=== PATIENT | female | born 1970 | race Hispanic/Latino ===

== ENCOUNTER 2017-06-04 15:09 | Inpatient (IN) | payer SELFPAY ==
[2017-06-04] MEDS ORDERED: EPINEPHrine 1 MG/ML AMP ONE (15:26)
[2017-06-04] MEDS ORDERED: diphenhydrAMINE 50 MG/ML VIAL ONE (15:26)
[2017-06-04] MEDS ORDERED: Ondansetron HCl/PF 4 MG/2 ML Vial ONE ×2 (15:26→15:35)
[2017-06-04] MEDS ORDERED: Dexamethasone 4 mg/ml Vial ONE (15:26)
[2017-06-04 15:32] LABS: Hemoglobin 17.7 g/dL (12.0-16.0); Mean Corpuscular HGB CONC 34.1 g/dL (32.0-36.0); Mean Corpuscular Volume 85.2 fl (81.0-99.0); Mean Platelet Volume 8.8 fL (7.4-10.4); Platelet Count 275 thou/uL (130-400); RBC Distribution Width 14.3 % (11.5-14.5); Red Blood Cell (RBC) Count 6.08 mill/uL (4.20-5.40); White Blood Cell (WBC) Count 9.1 thou/uL (4.8-10.8)
[2017-06-04] MEDS ORDERED: Famotidine/PF 20 mg/2ml Vial ONE (15:35)
[2017-06-04 15:46] LABS: Band 2 % (5-11); Eosinophils 1 % (0-10); Lymphocytes 42 % (21-51); MDiff Complete? YES; Monocytes 1 % (0-10); Neutrophil 44 % (42-75); PLT Morphology Comment Appears Adequate; RBC Morphology Normal; Reactive Lymphocytes 9 % (0-10)
[2017-06-04 15:54] LABS: CKMB 0.5 ng/mL (0-6.6); Troponin I Less than 0.010 ng/mL (< 0.028)
--- NOTE | 2017-06-04 15:59 | RAD ---
PORTABLE CHEST 06/04/17 PROVIDED CLINICAL HISTORY: Chest pain. Comparison 07/24/15. FINDINGS: The cardiac and mediastinal silhouette is within normal limits. No focal consolidation, pleural fluid or pneumothorax apparent. IMPRESSION: No evidence for an acute cardiopulmonary process. POS: [facility]
[2017-06-04 16:24] LABS: Albumin 3.4 g/dL (3.5-5.0)
[2017-06-04 16:25] LABS: Chloride 105 mmol/L (98-107); Potassium 3.4 mmol/L (3.5-5.1); Sodium 133 mmol/L (136-145)
[2017-06-04 16:26] LABS: Calcium 8.4 mg/dL (7.8-10.44); Glucose 424 mg/dL (70-105)
[2017-06-04 16:27] LABS: Globulin 3.4 g/dL (2.4-3.5); Protein, Total 6.8 g/dL (6.0-8.3)
[2017-06-04 16:28] LABS: Anion Gap 14 mmol/L (10-20); Bilirubin, Total 0.3 mg/dL (0.2-1.2); Carbon Dioxide 17 mmol/L (22-29)
[2017-06-04 16:29] LABS: Alkaline Phosphatase 107 U/L (40-150)
[2017-06-04 16:30] LABS: Calc. Creatinine Clearance 0 mL/min (70-130); Estimated GFR-MDRD 70
[2017-06-04 16:31] LABS: BUN (Urea Nitrogen) 14 mg/dL (7.0-18.7)
[2017-06-04 16:32] LABS: ALT (SGPT) Less than 7 U/L (8-55); AST (SGOT) 10 U/L (5-34)
[2017-06-04] MEDS ORDERED: Insulin Regular 300 UNITS/3 ML VIAL ONE (16:32)
[2017-06-04 16:33] LABS: CK (CPK) 51 U/L (29-168)
[2017-06-04] MEDS ORDERED: Acetaminophen 325 MG TAB PO PRN (17:45)
[2017-06-04] MEDS ORDERED: Dextrose 50% Abboject 50 ML SYRINGE SLOW IVP PRN (17:51)
[2017-06-04] MEDS ORDERED: Dextrose 5% in Water 1,000 ML IV PRN (17:51)
[2017-06-04 18:47] VITALS: BMI 32.9
[2017-06-04] MEDS: Sodium Chloride 0.9% 1,000 ML IV SCH (19:43)
[2017-06-04] MEDS: Heparin 5,000 UNITS/ML VIAL SC SCH (19:43)
[2017-06-04] MEDS: Famotidine/PF 20 mg/2ml Vial SLOW IVP SCH (19:43)
--- NOTE | 2017-06-04 21:27 | HP ---
DATE OF ADMISSION: 06/04/2017 PRIMARY CARE PHYSICIAN: No PCP. CHIEF COMPLAINT: Hives. HISTORY OF PRESENT ILLNESS: Patient is a very pleasant 47-year-old female who came into the hospital for hives and possible angioedema. Patient states that she had a headache yesterday. Normally, she does have migraine headaches and thought it was a migraine headache; however, this morning, she woke up, she did not take any medications. She went out with her friend to look at some houses, before e daxa getting to see the houses, patient stated that she started to have feeling very hot. Her tongue swelled up and patient started having felt like that she was having hives and she became very itchy. Patient does take lisinopril and has been taking it for many many years. Patient denies any recent new medications that were added or anything new that she eat out of form the ordinary. Patient denie s eating any of the seafood. Patient did state that normally, she does get seasonal allergies and sh e does have hives and has been under a lot of stress; however, never has had her tongue swelled up, w timmyoxana alerted her friend and therefore, she came into the ER. PAST MEDICAL HISTORY: She has history of migraine headaches. She has a history of hypertension, heather betes, has a history of asthma. She also has a history of CVA in 2015 and TIAs. She also has a hist ory of dyslipidemia. SOCIAL HISTORY: Patient continues to smoke a half a pack a day. She denies any alcohol or drug use. PAST SURGICAL HISTORY: She has had hysterectomy, tonsillectomy, and history of tubal ligation. PSYCHIATRIC HISTORY: She has a history of anxiety, depression, possible PTSD. ALLERGIES: She has no known drug allergies. FAMILY HISTORY: She is adopted, so she has no information about that. CURRENT MEDICATIONS: She takes metformin, unknown dose. She takes glipizide, unknown dose. She teetee es an aspirin 81 mg daily and she takes lisinopril, unknown dose and in her chart, it looks like she also takes Xanax 0.25 mg p.o. t.i.d. p.r.n. PHYSICAL EXAMINATION: VITAL SIGNS: She is afebrile at 98.8, heart rate is 53, blood pressure is 128/73, 99% on room air. GENERAL: She is awake, alert, oriented x3. HEENT: She does have some facial swelling around her upper and lower bilateral eyelids. She does lara ve mild thickening of her tongue and some puffiness of her face. She does also have some tenderness upon palpation of her right temporal area. She does also have some swelling around bilateral earlobe s. LUNGS: Clear to auscultation. No rhonchi, wheezes noted. CARDIOVASCULAR: S1, S2 present. No murmurs, rubs, or gallops. ABDOMEN: Soft, bowel sounds are present x2. EXTREMITIES: No edema. Pedal pulses are present x2. REVIEW OF SYSTEMS: Except for the ones mentioned in the HPI, all the review of systems is negative. Constitutional: Weight loss or gain, ability to conduct usual activities. Skin: Rash, itching. E yes: Double vision, pain. ENT/Mouth: Nose bleeding, neck stiffness, pain, tenderness. Cardiovascu lar: Palpitations, dyspnea on exertion, orthopnea. Respiratory: Shortness of breath, wheezing, cou gh, hemoptysis, fever, or night sweats. Gastrointestinal: Poor appetite, abdominal pain, heartburn, nausea, vomiting, constipation, or diarrhea. Genitourinary: Urgency, frequency, dysuria, nocturia. Musculoskeletal: Pain, swelling. Neurologic/Psychiatric: Anxiety, depression. Allergy/Immunolog ic: Skin rash, bleeding tendency. LABORATORY DATA: White count of 9.1, hemoglobin of 17.7, hematocrit of 51.8. She has sodium of 133, potassium of 3.4, bicarbonate of 17, glucose of 424, and her creatinine is 0.86. ASSESSMENT AND PLAN: Patient is a very pleasant 47-year-old female who presents to the hospital with swelling and angioedema. 1. Angioedema, most likely secondary to possible lisinopril; however, patient states that she has no t taken the lisinopril this morning. She took it yesterday morning. She denies using or taking any new medications or any eating out anywhere or eating any seafood. Patient was given epinephrine, Dec adron, and Pepcid in the ER. We will admit the patient to IMCU for closer monitoring. Patient kandace melendez does not appear any respiratory distress. We will continue Solu-Medrol 40 mg b.i.d. We will als o continue Pepcid IV 20 b.i.d. We will discontinue lisinopril and continue to monitor. 2. Hypertension. We will just add p.r.n. for now. 3. Diabetes. We will put patient on sliding scale insulin and she will require since she is going t o be on steroids. 4. Deep venous thrombosis prophylaxis. We will put patient on subcutaneous heparin. 5. Smoking. Patient has been educated on smoking cessation given her history of strokes. Patient u jj, however, currently right now is not ready to quit. We will add a nicotine patch for the patient.
[2017-06-05 04:29] LABS: ALT (SGPT) 7 U/L (8-55); AST (SGOT) 11 U/L (5-34); Albumin 3.7 g/dL (3.5-5.0); Alkaline Phosphatase 103 U/L (40-150); Anion Gap 13 mmol/L (10-20); BUN (Urea Nitrogen) 15 mg/dL (7.0-18.7); Bilirubin, Total 0.4 mg/dL (0.2-1.2); Calc. Creatinine Clearance 101 mL/min (70-130); Calcium 8.8 mg/dL (7.8-10.44); Carbon Dioxide 21 mmol/L (22-29); Chloride 106 mmol/L (98-107); Estimated GFR-MDRD 77; Globulin 3.2 g/dL (2.4-3.5); Glucose 305 mg/dL (70-105); Potassium 4.8 mmol/L (3.5-5.1); Protein, Total 6.9 g/dL (6.0-8.3); Sodium 135 mmol/L (136-145)
[2017-06-05 05:21] LABS: Band 10 % (5-11); Hemoglobin 14.7 g/dL (12.0-16.0); Lymphocytes 4 % (21-51); MDiff Complete? YES; Mean Corpuscular HGB CONC 33.8 g/dL (32.0-36.0); Mean Corpuscular Hemoglobin 29.2 pg (27.0-31.0); Mean Corpuscular Volume 86.5 fl (81.0-99.0); Mean Platelet Volume 8.9 fL (7.4-10.4); Monocytes 2 % (0-10); Neutrophil 84 % (42-75); PLT Morphology Comment Appears Adequate; Platelet Count 212 thou/uL (130-400); RBC Distribution Width 14.2 % (11.5-14.5); RBC Morphology Normal; Red Blood Cell (RBC) Count 5.03 mill/uL (4.20-5.40); White Blood Cell (WBC) Count 12.1 thou/uL (4.8-10.8)
[2017-06-05] MEDS: HumaLOG 300 UNITS/3 ML VIAL SC PRN ×3 (06:06→20:45)
[2017-06-05] MEDS: Sodium Chloride 0.9% 1,000 ML IV SCH (10:11)
[2017-06-05] MEDS: Heparin 5,000 UNITS/ML VIAL SC SCH ×3 (10:12→20:48)
[2017-06-05] MEDS: Aspirin 81 mg Enteric Coated Tablet PO SCH (10:12)
[2017-06-05] MEDS: Famotidine/PF 20 mg/2ml Vial SLOW IVP SCH (11:23)
--- NOTE | 2017-06-05 13:41 | PDOC.PN ---
- Subjective Encounter Start Date: 06/05/17 Encounter Start Time: 10:30 Subjective: no trouble swallowing or breathing -: tongue and facial swelling plus whole body itching has come down -: feels better - Objective MAR Reviewed: Yes Vital Signs & Weight: Vital Signs (12 hours) Temp Pulse Resp BP Pulse Ox 06/05/17 11:44 98.4 F 74 18 116/66 98 06/05/17 07:43 98.8 F 70 20 06/05/17 07:29 98.8 F 70 20 112/76 100 06/05/17 04:59 97.9 F 74 110/71 96 06/05/17 00:40 97.9 F 78 130/71 96 Weight Weight 163 lb I&O: 06/04/17 06/05/17 06/06/17 05:59 06:59 06:59 Intake Total Output Total Balance Result Diagrams: 06/05/17 03:31 06/05/17 03:31 Additional Labs: Accuchecks 06/05/17 06/05/17 06/04/17 10:46 05:55 21:26 POC Glucose 196 H 234 H 289 H 06/04/17 18:42 POC Glucose 261 H Phys Exam - Physical Examination HEENT: PERRLA, moist MMs Neck: no JVD, supple Respiratory: no wheezing, no rales Cardiovascular: RRR, no significant murmur Gastrointestinal: soft, non-tender, positive bowel sounds Musculoskeletal: no edema, pulses present Neurological: non-focal, moves all 4 limbs Psychiatric: A&O x 3 Dx/Plan (1) Drug allergy Code(s): Z88.9 - ALLERGY STATUS TO [facility] DRUG/MEDS/BIOL SUBST STATUS Status: Acute Comment: ?anaphylactic reaction (2) Asthma Code(s): J45.909 - UNSPECIFIED ASTHMA, UNCOMPLICATED Status: Chronic Qualifiers: Asthma severity: mild Asthma persistence: intermittent Asthma complication type: unspecified Qualified Code(s): J45.20 - Mild intermittent asthma, uncomplicated (3) Diabetes type 2, controlled Code(s): E11.9 - TYPE 2 DIABETES MELLITUS WITHOUT COMPLICATIONS Status: Chronic Qualifiers: Diabetes mellitus complication status: with unspecified complications Diabetes mellitus stiff neck loader insulin use: without stiff neck loader use Qualified Code( s): E11.8 - Type 2 diabetes mellitus with unspecified complications (4) Dyslipidemia Code(s): E78.5 - HYPERLIPIDEMIA, UNSPECIFIED Status: Chronic (5) Hypertension Code(s): I10 - ESSENTIAL (PRIMARY) HYPERTENSION Status: Chronic Qualifiers: Hypertension type: essential hypertension Qualified Code(s): I10 - Essential (primary) hypertension - Plan is on benadryl, steroids, pepcid -: gentle iv hydration -: may tx to med floor, hold lisinopril and glyburide -: is hemodynamically stable now, trial of home meds -: oral diet, dc plan in am * . Review of Systems - Medications/Allergies Allergies/Adverse Reactions: Allergies Allergy/AdvReac Type Severity Reaction Status Date / Time ibuprofen Allergy Verified 07/24/15 06:11 tramadol Allergy Verified 07/24/15 06:11 Medications: Current Medications Acetaminophen (Tylenol) 650 mg PO Q4H PRN PRN Reason: Headache/Fever or Pain Last Admin: 06/05/17 06:11 Dose: 650 mg Aspirin (Ecotrin) 81 mg PO DAILY [facility] Last Admin: 06/05/17 10:12 Dose: 81 mg Dextrose/Water (Dextrose 50%) 25 gm SLOW IVP PRN PRN PRN Reason: Hypoglycemia Diphenhydramine HCl (Benadryl) 25 mg PO TID [facility] Famotidine (Pepcid) 20 mg SLOW IVP Q12HR [facility] Last Admin: 06/05/17 11:23 Dose: 20 mg Glucagon (Glucagon) 1 mg IM PRN PRN PRN Reason: Hypoglycemia Heparin Sodium (Porcine) (Heparin) 5,000 units SC TID [facility] Last Admin: 06/05/17 10:12 Dose: 5,000 units Sodium Chloride (Normal Saline 0.9%) 1,000 mls @ 75 mls/hr IV .[id number] [facility] Last Admin: 06/05/17 10:11 Dose: 1,000 mls Dextrose/Water (D5w) 1,000 mls @ 0 mls/hr IV .Q0M PRN; As Directed PRN Reason: Hypoglycemia Insulin Human Lispro (Humalog) 0 units SC .AGGRESSIVE SLIDING PRN PRN Reason: Aggressive Correctional Scale Last Admin: 06/05/17 11:23 Dose: 3 unit Metformin HCl (Glucophage) 1,000 mg PO BID[facility] Methylprednisolone Sodium Succinate (Solu-Medrol) 40 mg IVP 0600,1800 [facility] Last Admin: 06/05/17 06:06 Dose: 40 mg Simvastatin (Zocor) 10 mg PO QPM-WM [facility] Sodium Chloride (Flush - Normal Saline) 10 ml IVF Q12HR [facility] Last Admin: 06/05/17 10:12 Dose: 10 ml Sodium Chloride (Flush - Normal Saline) 10 ml IVF PRN PRN PRN Reason: Saline Flush
[2017-06-05] MEDS ORDERED: diphenhydrAMINE 25 MG CAP PO SCH (15:00)
--- NOTE | 2017-06-05 15:27 | CON ---
DATE OF CONSULTATION: 06/05/2017 Ms. Espinoza is a 47-year-old female. She has a history of hypertension. She is on an MAKENNA inhibitor. She says yesterday morning her tongue started swelling, which understandably frightened her. She ca me to the emergency room and subsequently was admitted to the hospital. Her tongue is almost back to normal. She says she is able to speak in complete sentences. She is in no distress. I was consulted, because of her presence in the Intermediate Care Unit. She is followed [facility] at [facility]. PAST MEDICAL HISTORY: Remarkable for, 1. Hypertension 2. History of vascular headaches. 3. History of diabetes. 4. History of asthma. 5. History of cerebrovascular accident. 6. History of lipid disorder. SOCIAL HISTORY: She smokes a half-pack a day. She does not drink. She does not use drugs. She rep orts no drug allergies. FAMILY HISTORY: Prior to admission, unknown since she is adopted. MEDICATIONS: Prior to admission, she is on metformin, glipizide, aspirin, lisinopril, Xanax. REVIEW OF SYSTEMS: A 12-point review of systems is otherwise normal. She says she feels normal. PHYSICAL EXAMINATION: VITAL SIGNS: She is afebrile, heart rate 74, respiratory rate is 18, oximetry is 98 on room air, blo od pressure 116/66. HEENT: Pupils are equal. Sclerae is anicteric. Extraocular movements are full. Her tongue is norm al. NECK: Supple, without lymphadenopathy. LUNGS: Clear. HEART: Regular rhythm. S1 and S2 are normal. ABDOMEN: Soft and nontender. EXTREMITIES: Without clubbing, cyanosis, or edema. NEUROLOGIC: Nonfocal. LABORATORY DATA: White count 12.1, hemoglobin 14.7, platelets 212,000. Sodium 135, potassium 4.8, chloride 106, bicarb 21, BUN 15, creatinine 0.79, glucose between 196 and 305 today. IMPRESSION: Angioedema secondary to lisinopril. I have explained to her that she can never take MAKENNA inhibitors, i.e., lisinopril again. I have asked her to see [facility] this week for monitoring of her blood pressure. There is no reason to keep her in the hospital in my opinion. This is a 50-minute consult of which g reater than 50% of the time was spent on the unit coordinating care.
[2017-06-05] MEDS ORDERED: Simvastatin 5 MG TAB PO SCH (17:00)
[2017-06-05] MEDS ORDERED: Non-Formulary Item 1 EACH (Lovastatin [Lovastatin] 20 MG) PO SCH (17:00)
[2017-06-05] MEDS ORDERED: Non-Formulary Item 1 EACH (Metformin Hcl [Metformin Hcl] 1,000 MG) PO SCH (17:00)
[2017-06-05] MEDS ORDERED: glyBURIDE 5 MG TAB PO SCH (17:00)
[2017-06-05] MEDS: metFORMIN 500 MG TAB PO SCH (17:53)
[2017-06-05] MEDS ORDERED: diphenhydrAMINE 25 MG CAP PO PRN (18:01)
[2017-06-05] MEDS: Famotidine 40 MG/4 ML VIAL SLOW IVP SCH (20:47)
[2017-06-06] MEDS: HumaLOG 300 UNITS/3 ML VIAL SC PRN ×2 (05:44→11:42)
[2017-06-06] MEDS: Famotidine 40 MG/4 ML VIAL SLOW IVP SCH (08:20)
[2017-06-06] MEDS: Aspirin 81 mg Enteric Coated Tablet PO SCH (08:20)
[2017-06-06] MEDS: metFORMIN 500 MG TAB PO SCH (08:21)
[2017-06-06 08:23] VITALS: BP 144/80; TEMP 98.1
--- NOTE | 2017-06-06 12:11 | PDOC.PN ---
- Subjective Encounter Start Date: 06/06/17 Encounter Start Time: 10:45 Subjective: feels good, still has occasional itching over her abdomen but not as bad as -: before. No trouble swallowing or diff breathing. Is eating well - Objective MAR Reviewed: Yes Vital Signs & Weight: Vital Signs (12 hours) Temp Pulse Resp BP Pulse Ox 06/06/17 08:00 98.1 F 74 16 144/80 H 97 06/06/17 04:01 98.0 F 65 18 141/76 H 95 06/06/17 01:58 97.9 F 77 18 120/70 93 L Weight Weight 163 lb I&O: 06/05/17 06/06/17 06/07/17 06:59 06:59 06:59 Intake Total 622 Output Total Balance 622 Result Diagrams: 06/05/17 03:31 06/05/17 03:31 Additional Labs: Accuchecks 06/06/17 06/06/17 06/05/17 10:26 04:31 20:45 POC Glucose 383 H 265 H 322 H Phys Exam - Physical Examination HEENT: PERRLA, moist MMs Neck: no JVD, supple Respiratory: no wheezing, no rales Cardiovascular: RRR, no significant murmur Gastrointestinal: soft, non-tender, positive bowel sounds Musculoskeletal: no edema, pulses present Neurological: non-focal, moves all 4 limbs Psychiatric: normal affect, A&O x 3 Dx/Plan (1) Drug allergy Code(s): Z88.9 - ALLERGY STATUS TO [facility] DRUG/MEDS/BIOL SUBST STATUS Status: Acute Comment: ?anaphylactic reaction (2) Asthma Code(s): J45.909 - UNSPECIFIED ASTHMA, UNCOMPLICATED Status: Chronic Qualifiers: Asthma severity: mild Asthma persistence: intermittent Asthma complication type: unspecified Qualified Code(s): J45.20 - Mild intermittent asthma, uncomplicated (3) Diabetes type 2, controlled Code(s): E11.9 - TYPE 2 DIABETES MELLITUS WITHOUT COMPLICATIONS Status: Chronic Qualifiers: Diabetes mellitus complication status: with unspecified complications Diabetes mellitus retirement insulin use: without retirement use Qualified Code( s): E11.8 - Type 2 diabetes mellitus with unspecified complications (4) Dyslipidemia Code(s): E78.5 - HYPERLIPIDEMIA, UNSPECIFIED Status: Chronic (5) Hypertension Code(s): I10 - ESSENTIAL (PRIMARY) HYPERTENSION Status: Chronic Qualifiers: Hypertension type: essential hypertension Qualified Code(s): I10 - Essential (primary) hypertension - Plan Had urticaria with mild anaphylactic reaction to unknown drug/allergen -: no further lisinopril or glyburide (was started 2 weeks back) -: to continue glipizide and metformin -: dc pt home, steroid taper to prevent bounce back of urticaria * .
--- NOTE | 2017-06-06 12:20 | PRG ---
DATE OF SERVICE: 06/06/2017 Bre Espinoza is still in the hospital. She has absolutely no complaints. PHYSICAL EXAMINATION: VITAL SIGNS: Blood pressure is 144/80, off her MAKENNA inhibitor. She is afebrile, heart rate 74, oxime try is 97 on room air. HEENT: Tongue is completely normal. LUNGS: Her lungs are clear. I have entered a discharge orders. She will follow up with [facility] this week to have a new anti hypertensive added if indicated. Serial blood pressure measurements would be helpful.
--- NOTE | 2017-06-06 20:23 | DIS ---
DATE OF ADMISSION: 06/04/2017 DATE OF DISCHARGE: 06/06/2017 DISCHARGE DISPOSITION: To home. PRIMARY DISCHARGE DIAGNOSIS: Generalized urticaria with possible early anaphylaxis to unknown drug/antigen, resolved. SECONDARY DISCHARGE DIAGNOSES: History of asthma; diabetes mellitus, type 2; dyslipidemia; hypertension. PROCEDURES DONE DURING HOSPITALIZATION: The patient has had chest x-ray done, which showed no acute infiltrates. H&H of 14 and 43, platelet count 212, BUN 15 , creatinine 0.7. DISCHARGE MEDICATIONS: Prednisone 5 mg p.o. daily for another 4 days and to discontinue, Benadryl 25 mg 3 times daily p.r.n., aspirin 81 mg p.o. daily, glipizide 5 mg p.o. daily, metformin 1000 mg p.o. twice daily, lovastatin 20 mg p.o. q.p.m. ALLERGIES: MOTRIN and ULTRAM. DISCHARGE PLAN: The patient to follow up with primary care physician in 1 week. BRIEF COURSE DURING HOSPITALIZATION: The patient initially came to ER with complaints of generalized itching, hives and tongue swelling. She was initially placed in IMCU for close monitoring. She was placed on steroids, Pepcid, and Benadryl. The patient also started glyburide in the last two weeks. She was also on lisinopril. It is unclear what triggered her generalized urticaria with early anaphylaxis. Within 24 hours, the patient's tongue swelling and generalized itching [id number] resolved. She was closely monitored for possible rebound. She needs to continue steroid taper for another 4 days and Benadryl p.r.n. The patient had taken glipizide for a long time and was switched over to glyburide and it is unclear of the reasoning 2 weeks back. In view of this, she has been placed back on her glipizide along with metformin. No antihypertensives have been given at present. The patient needs to follow up with primary care physician in 1 week. She is ambulating and eating well prior to discharge. Please see a [id number] documentation on [employer] for the day of discharge. [facility]
--- NOTE | 2017-06-11 12:37 | EKG ---
Test Reason : Blood Pressure : / mmHG Vent. Rate : 125 BPM Atrial Rate : 125 BPM P-R Int : 138 ms QRS Dur : 068 ms QT Int : 332 ms P-R-T Axes : 054 065 020 degrees QTc Int : 479 ms Sinus tachycardia Biatrial enlargement Abnormal ECG Confirmed by RACHAEL FREEDMAN, JAD ([id number]), editor in chief KAMARI MONTEJO ([id number]) on 06/11/2017 12:36:04 PM Referred By: Confirmed By:JAD CANO MD
== END 2017-06-06 13:20 | disposition home or self-care (01) | DRG 916 ==
LOC: ERS 15:09 → IMCU/EMU 18:33 → T4-B 06-05 16:39
PROVIDERS: ADMIT Internal Medicine; ATTEND Internal Medicine
DX: T88.6XXA Anaphylactic reaction due to adverse effect of correct drug or medicament properly administered, initial encounter (principal); E11.9 Type 2 diabetes mellitus without complications; T78.3XXA Angioneurotic edema, initial encounter; L50.0 Allergic urticaria; G43.909 Migraine, unspecified, not intractable, without status migrainosus; I10 Essential (primary) hypertension; E78.5 Hyperlipidemia, unspecified; F17.210 Nicotine dependence, cigarettes, uncomplicated; Z86.73 Personal history of transient ischemic attack (TIA), and cerebral infarction without residual deficits; T50.905A Adverse effect of unspecified drugs, medicaments and biological substances, initial encounter; T88.7XXA Unspecified adverse effect of drug or medicament, initial encounter
CPT/HCPCS: 36415; 36416; 71045; 80053; 82550; 82553; 84484; 85007; 85025; 85027; 85652; 86140; 93005; 96361; 96372; 96374; 96375; A4216; J0171; J1100; J1200; J1644; J1815; J2405; J2920; S0028

== ENCOUNTER 2017-12-28 16:12 | Emergency (ER) | payer SELFPAY ==
[2017-12-28] MEDS ORDERED: Metoprolol Tartrate 25 MG TAB ONE (16:34)
[2017-12-28] MEDS ORDERED: hydrOXYzine 25 MG TAB ONE (16:34)
[2017-12-28 17:16] LABS: ALT (SGPT) Less than 7 U/L (8-55); AST (SGOT) 13 U/L (5-34); Albumin 3.9 g/dL (3.5-5.0); Alkaline Phosphatase 108 U/L (40-150); Anion Gap 11 mmol/L (10-20); BUN (Urea Nitrogen) 6 mg/dL (7.0-18.7); Bilirubin, Total 0.3 mg/dL (0.2-1.2); Calc. Creatinine Clearance 0 mL/min (70-130); Calcium 9.2 mg/dL (7.8-10.44); Carbon Dioxide 20 mmol/L (22-29); Chloride 106 mmol/L (98-107); Estimated GFR-MDRD 78; Glucose 246 mg/dL (70-105); Potassium 3.8 mmol/L (3.5-5.1); Protein, Total 7.9 g/dL (6.0-8.3); Sodium 133 mmol/L (136-145)
--- NOTE | 2017-12-31 18:15 | EKG ---
Test Reason : Blood Pressure : / mmHG Vent. Rate : 077 BPM Atrial Rate : 077 BPM P-R Int : 144 ms QRS Dur : 074 ms QT Int : 386 ms P-R-T Axes : 046 032 -01 degrees QTc Int : 436 ms Normal sinus rhythm Possible Left atrial enlargement Borderline ECG Confirmed by LANDRY FREEDMAN, KELSI Penaloza ([id number]), publication editor KAMARI MONTEJO ([id number]) on 12/31/2017 6:15:01 PM Referred By: Confirmed By:KELSI ALATORRE MD
== END 2017-12-28 18:13 | disposition home or self-care (01) ==
LOC: ERS 16:12
DX: I10 Essential (primary) hypertension (principal); F41.9 Anxiety disorder, unspecified; E11.9 Type 2 diabetes mellitus without complications; E78.5 Hyperlipidemia, unspecified; J45.909 Unspecified asthma, uncomplicated; F17.210 Nicotine dependence, cigarettes, uncomplicated; F32.9 Major depressive disorder, single episode, unspecified; Z86.73 Personal history of transient ischemic attack (TIA), and cerebral infarction without residual deficits
CPT/HCPCS: 36415; 80053; 93005

== ENCOUNTER 2017-12-30 13:35 | Observation (INO) | payer SELFPAY ==
[2017-12-30 14:43] LABS: #Basophils 0.1 thou/uL (0.0-0.2); #Eosinphils 0.2 thou/uL (0.0-0.7); #Monocytes 0.5 thou/uL (0.11-0.59); %Basophils 0.8 % (0.0-1.0); %Eosinophils 1.6 % (0.0-10.0); %Lymphocytes 30.9 % (21.0-51.0); %Monocytes 4.9 % (0.0-10.0); %Neutrophils 61.9 % (42.0-75.0); Hemoglobin 15.2 g/dL (12.0-16.0); Mean Corpuscular HGB CONC 33.6 g/dL (32.0-36.0); Mean Corpuscular Hemoglobin 29.3 pg (27.0-31.0); Mean Platelet Volume 9.2 fL (7.4-10.4); Platelet Count 168 thou/uL (130-400); RBC Distribution Width 13.9 % (11.5-14.5); White Blood Cell (WBC) Count 9.7 thou/uL (4.8-10.8)
--- NOTE | 2017-12-30 14:54 | CT ---
CT BRAIN WITHOUT CONTRAST: HISTORY: Right-sided weakness, slurred speech. FINDINGS: Comparison is made with the exam of 11/26/2016. No evidence of acute infarct, hemorrhage, midline shift, or abnormal extraaxial fluid collections is seen. The ventricular size is stable and the basilar cisterns patent. The bony calvarium is intact. The visualized paranasal sinuses and mastoid air cells are well aerated. IMPRESSION: No CT evidence of acute intracranial process. POS: [facility]
[2017-12-30 15:11] LABS: ALT (SGPT) Less than 7 U/L (8-55); AST (SGOT) 13 U/L (5-34); Albumin 3.9 g/dL (3.5-5.0); Alkaline Phosphatase 100 U/L (40-150); Anion Gap 10 mmol/L (10-20); BUN (Urea Nitrogen) 11 mg/dL (7.0-18.7); Bilirubin, Total 0.2 mg/dL (0.2-1.2); Calc. Creatinine Clearance 0 mL/min (70-130); Carbon Dioxide 25 mmol/L (22-29); Chloride 105 mmol/L (98-107); Estimated GFR-MDRD 78; Globulin 3.4 g/dL (2.4-3.5); Glucose 177 mg/dL (70-105); Protein, Total 7.3 g/dL (6.0-8.3); Sodium 136 mmol/L (136-145)
[2017-12-30 15:14] LABS: CKMB 0.4 ng/mL (0-6.6); Troponin I Less than 0.010 ng/mL (< 0.028)
[2017-12-30] MEDS ORDERED: Morphine 2 MG/ML SYRINGE ONE (17:04)
[2017-12-30 18:18] VITALS: BMI 32.8
[2017-12-30] MEDS ORDERED: Guaifenesin DM 100-10/5 ML UDCUP PO PRN (18:41)
[2017-12-30] MEDS ORDERED: Senokot S 8.6-50 MG TAB PO PRN (18:41)
[2017-12-30] MEDS ORDERED: Dextrose 5% in Water 1,000 ML IV PRN (18:41)
[2017-12-30] MEDS ORDERED: Dextrose 50% Abboject 50 ML SYRINGE SLOW IVP PRN (18:41)
[2017-12-30] MEDS ORDERED: Nicotine 14 MG PATCH TD SCH (18:45)
[2017-12-30] MEDS ORDERED: Sodium Chloride 0.9% 1,000 ML IV SCH (18:45)
[2017-12-30] MEDS ORDERED: Atorvastatin Calcium 40 MG TAB PO SCH (21:00)
[2017-12-30] MEDS: Famotidine 20 MG TAB PO SCH (22:30)
[2017-12-30] MEDS: Acetaminophen 325 MG TAB PO PRN (22:30)
--- NOTE | 2017-12-31 01:16 | HP ---
REASON FOR ADMISSION: Transient ischemic attack with right-sided weakness. HISTORY OF PRESENT ILLNESS: The patient gives history of having right lower extremity pain for which she came to the ER 2 days back. She was found to have had high blood pressure and was told she had anxiety attack after initial workup and was sent home on Atarax. The patient takes care of her 2 granddaughters who are 2-year-old and 1-month-old. Her daughter this morning came to check on her and she was slurring her words and was still dragging her right lower extremity. She called EMS and the patient was brought to emergency room. She also complains of having numbness in right upper and lower extremity. She mentions that she has had stroke in 09/2014 and two TIAs in 2013 , all of which left no residuals. All the stroke and TIA's were on the right side. Currently, she has no fever, cough, or expectoration. She is a right- handed person. PAST MEDICAL AND SURGICAL HISTORY: History of CVA in 2014 with right-sided weakness with no residual; 2 times TIA, all on the right side with no residual; hypertension; dyslipidemia; diabetes mellitus type 2; hysterectomy; tonsillectomy; tubal ligation; anxiety disorder. CURRENT MEDICATIONS: The patient takes metformin, glipizide, Norvasc, aspirin 81 mg daily, and nebulizers for asthma. ALLERGIES: MOTRIN, ULTRAM, LISINOPRIL causes angioedema. PERSONAL HISTORY: Smokes half pack a day. Does not abuse alcohol or drugs. Lives with her daughter. FAMILY HISTORY: The patient is adopted. CODE STATUS: FULL. Power of research attorney is her daughter, Ms. Lam Honeycutt. REVIEW OF SYSTEMS: The following complete review of systems was negative, unless otherwise mentioned in the HPI or below: Constitutional: Weight loss or gain, ability to conduct usual activities. Skin: Rash, itching. Eyes: Double vision, pain. ENT/Mouth: Nose bleeding, neck stiffness, pain, tenderness. Cardiovascular: Palpitations, dyspnea on exertion, orthopnea. Respiratory: Shortness of breath, wheezing, cough, hemoptysis, fever, or night sweats. Gastrointestinal: Poor appetite, abdominal pain, heartburn, nausea, vomiting, constipation, or diarrhea. Genitourinary: Urgency, frequency, dysuria, nocturia. Musculoskeletal: Pain, swelling. Neurologic/Psychiatric: Anxiety, depression. Allergy/Immunologic: Skin rash, bleeding tendency. PHYSICAL EXAMINATION: GENERAL: The patient is a 47-year-old female who is currently not in any acute distress. VITAL SIGNS: Blood pressure 156/94, pulse 84 per minute, respiratory rate 20 per minute, temperature 99 degrees Fahrenheit, saturating 100% on room air. NECK: Supple. No elevated JVD. HEENT: Eyes, extraocular muscles intact. Pupils reacting to light. Oral cavity, mucous membranes are moist. No exudates or congestion. CARDIOVASCULAR SYSTEM: S1, S2 heard. Regular rhythm. RESPIRATORY SYSTEM: Air entry 2+ bilateral. No rales or rhonchi. ABDOMEN: Soft. Bowel sounds heard. No tenderness, rigidity, or guarding. EXTREMITIES: No peripheral edema or calf tenderness. VASCULAR SYSTEM: Peripheral pulses 2+ bilateral. No ischemic ulcerations or gangrene. CENTRAL NERVOUS SYSTEM: Cranial nerves are grossly intact. Strength in right side is 4/5 when compared to left. The patient is right-handed person. Sensory system is grossly intact. Gait was not tested. Cerebellar signs are normal. PSYCHIATRIC: The patient's mood is euthymic. No hallucinations or delusions. LABORATORY AND X-RAY FINDINGS: CT brain done showed no acute intracranial abnormalities. Electrolytes are stable. BUN 11, creatinine 0.7, serum glucose 177. Liver enzymes within normal limits. First set of cardiac enzymes are negative. Albumin is 3.9. White count of 9, H&H 15 and 45, platelet count 168 with 61% neutrophils. EKG done shows normal sinus rhythm at 69 beats per minute. CLINICAL IMPRESSION AND PLAN: The patient will be under observation on Stroke Unit for transient ischemic attack with right-sided weakness. This she sustained 2 days back per the patient. We will obtain an MRI and follow transient ischemic attack evidence-based protocol. The patient has had 2 prior TIAs and 1 stroke in 2015. She has not had any residual paralysis from any of the above-mentioned stroke or TIAs. The patient states she is compliant with her medications. We will try to obtain AGUEDA levels. PT/OT evaluations will be requested in the morning. She is currently hemodynamically stable. We will continue her glipizide; aspirin, which she takes at home; Lipitor; metformin. One liter of normal saline will be given as well. Ultrasound venous Doppler of lower extremities to rule out DVT. [facility]
[2017-12-31] MEDS: Acetaminophen 325 MG TAB PO PRN (04:10)
[2017-12-31 05:57] LABS: Anion Gap 10 mmol/L (10-20); BUN (Urea Nitrogen) 12 mg/dL (7.0-18.7); Calc. Creatinine Clearance 108 mL/min (70-130); Calcium 8.8 mg/dL (7.8-10.44); Carbon Dioxide 23 mmol/L (22-29); Cardiac Risk 5.9 (Less than 4.5); Chloride 104 mmol/L (98-107); Cholesterol 160 mg/dl (< 200 Desired); Estimated GFR-MDRD 87; Glucose 243 mg/dL (70-105); HDL Cholesterol 27 mg/dL (>60 Neg Risk); LDL Cholesterol, Calculated 104 mg/dL; Potassium 3.9 mmol/L (3.5-5.1); Sodium 133 mmol/L (136-145); Triglycerides 144 mg/dL (Less than 150)
[2017-12-31] MEDS: HumaLOG 300 UNITS/3 ML VIAL SC PRN ×2 (05:58→11:29)
[2017-12-31 06:08] LABS: #Basophils 0.1 thou/uL (0.0-0.2); #Eosinphils 0.1 thou/uL (0.0-0.7); #Monocytes 0.4 thou/uL (0.11-0.59); %Basophils 0.7 % (0.0-1.0); %Eosinophils 1.9 % (0.0-10.0); %Lymphocytes 39.5 % (21.0-51.0); %Monocytes 5.5 % (0.0-10.0); %Neutrophils 52.4 % (42.0-75.0); Hemoglobin 14.4 g/dL (12.0-16.0); Mean Corpuscular HGB CONC 33.6 g/dL (32.0-36.0); Mean Corpuscular Hemoglobin 29.1 pg (27.0-31.0); Mean Corpuscular Volume 86.8 fL (78.0-98.0); Mean Platelet Volume 9.8 fL (7.4-10.4); Platelet Count 158 thou/uL (130-400); RBC Distribution Width 13.9 % (11.5-14.5); Red Blood Cell (RBC) Count 4.94 mill/uL (4.20-5.40); White Blood Cell (WBC) Count 7.6 thou/uL (4.8-10.8)
[2017-12-31] MEDS ORDERED: glipiZIDE 5 MG TAB PO SCH (07:30)
[2017-12-31 07:50] VITALS: TEMP 98
[2017-12-31] MEDS ORDERED: metFORMIN 500 MG TAB PO SCH (08:00)
[2017-12-31] MEDS ORDERED: Lorazepam 1 MG TAB PO SCH (08:15)
--- NOTE | 2017-12-31 08:43 | ULT ---
VENOUS DUPLEX SONOGRAM BILATERAL LOWER EXTREMITIES: HISTORY: Bilateral leg pain and edema. FINDINGS: Each common femoral vein and greater saphenous junction were evaluated along with each femoral, deep femoral, popliteal, and posterior tibial vein. There is good color and spectral Doppler flow, compre ssion, and augmentation. IMPRESSION: No sonographic evidence of deep vein thrombosis with either lower extremity. POS: [facility]
[2017-12-31] MEDS ORDERED: Aspirin 81 mg Enteric Coated Tablet PO SCH (09:00)
[2017-12-31] MEDS ORDERED: Amlodipine 10 MG TAB PO SCH (09:00)
[2017-12-31] MEDS ORDERED: Enoxaparin Sodium 40 MG/0.4 ML SYRINGE SC SCH (09:00)
[2017-12-31] MEDS: Famotidine 20 MG TAB PO SCH (11:26)
--- NOTE | 2017-12-31 11:39 | PDOC.PN ---
- Subjective Encounter Start Date: 12/31/17 Encounter Start Time: 10:30 Subjective: no new weakness, feels better -: slept well last night - Objective Resuscitation Status: Resuscitation Status FULL:Full Resuscitation MAR Reviewed: Yes Vital Signs & Weight: Vital Signs (12 hours) Temp Pulse Resp BP Pulse Ox 12/31/17 11:26 63 12/31/17 07:49 98 F 63 16 141/76 H 97 12/31/17 04:00 98.4 F 60 19 139/73 98 12/31/17 03:00 98.0 F 55 L 16 148/79 H 97 12/31/17 00:00 98.4 F 53 L 18 141/75 H 98 Weight Weight 156 lb 12.8 oz I&O: 12/30/17 12/31/17 01/01/18 06:59 06:59 06:59 Intake Total 360 Balance 360 Result Diagrams: 12/31/17 05:16 12/31/17 05:16 Additional Labs: Accuchecks 12/31/17 12/31/17 10:41 05:49 POC Glucose 225 H 224 H Phys Exam - Physical Examination HEENT: PERRLA, moist MMs Neck: no JVD, supple Respiratory: no wheezing, no rales Cardiovascular: RRR, no significant murmur Gastrointestinal: soft, non-tender, positive bowel sounds Musculoskeletal: no edema, pulses present Neurological: non-focal, moves all 4 limbs Psychiatric: normal affect, A&O x 3 Dx/Plan (1) TIA (transient ischemic attack) Status: Acute Qualifiers: Transient cerebral ischemia type: unspecified Qualified Code(s): G45.9 - Transient cerebral ischemic attack, unspecified (2) Diabetes type 2, controlled Code(s): E11.9 - TYPE 2 DIABETES MELLITUS WITHOUT COMPLICATIONS Status: Chronic Qualifiers: Diabetes mellitus rabbit dresser insulin use: without chcf use Diabetes mellitus complication status: with unspecified complications Qualified Code(s) : E11.8 - Type 2 diabetes mellitus with unspecified complications (3) Dyslipidemia Code(s): E78.5 - HYPERLIPIDEMIA, UNSPECIFIED Status: Chronic (4) Hypertension Code(s): I10 - ESSENTIAL (PRIMARY) HYPERTENSION Status: Chronic Qualifiers: Hypertension type: essential hypertension - Plan hemo/neurostable -: await MRI results -: if above is normal may dc home -: to continue asp, lipitor, glipizide and metformin -: add norvasc for htn, usg venous doppler is -ve, ldl 104 * . Review of Systems - Medications/Allergies Allergies/Adverse Reactions: Allergies Allergy/AdvReac Type Severity Reaction Status Date / Time ibuprofen Allergy Verified 12/30/17 18:13 tramadol Allergy Verified 12/30/17 18:13 Medications: Current Medications Acetaminophen (Tylenol) 650 mg PO Q4H PRN PRN Reason: Headache/Fever/Mild Pain (1-3) Last Admin: 12/31/17 04:10 Dose: 650 mg Amlodipine Besylate (Norvasc) 10 mg PO DAILY [facility] Last Admin: 12/31/17 11:26 Dose: 10 mg Aspirin (Ecotrin) 81 mg PO DAILY [facility] Last Admin: 12/31/17 11:26 Dose: 81 mg Atorvastatin Calcium (Lipitor) 40 mg PO HS [facility] Last Admin: 12/30/17 22:30 Dose: 40 mg Dextrose/Water (Dextrose 50%) 25 gm SLOW IVP PRN PRN PRN Reason: Hypoglycemia Enoxaparin Sodium (Lovenox) 40 mg SC 0900 [facility] Last Admin: 12/31/17 11:26 Dose: 40 mg Famotidine (Pepcid) 20 mg PO BID [facility] Last Admin: 12/31/17 11:26 Dose: 20 mg Glipizide (Glucotrol) 5 mg PO DAILY-[facility] Last Admin: 12/31/17 09:23 Dose: 5 mg Glucagon (Glucagon) 1 mg IM PRN PRN PRN Reason: Hypoglycemia Guaifenesin/Dextromethorphan (Robitussin Dm) 15 ml PO Q4H PRN PRN Reason: Cough Dextrose/Water (D5w) 1,000 mls @ 0 mls/hr IV .Q0M PRN PRN Reason: Hypoglycemia Insulin Human Lispro (Humalog) 0 units SC .MODERATE SLIDING SC PRN PRN Reason: Moderate Correctional Scale Last Admin: 12/31/17 11:29 Dose: 4 unit Metformin HCl (Glucophage) 1,000 mg PO BID-[facility] Last Admin: 12/31/17 09:23 Dose: 1,000 mg Nicotine (Nicoderm Patch) 14 mg TD Q24HR [facility] Last Admin: 12/30/17 22:31 Dose: 14 mg Senna/Docusate Sodium (Senokot S) 2 tab PO BID PRN PRN Reason: Constipation Sodium Chloride (Flush - Normal Saline) 10 ml IVF PRN PRN PRN Reason: Saline Flush
--- NOTE | 2017-12-31 12:53 | MRI ---
MRI BRAIN WITHOUT CONTRAST: HISTORY: Transient ischemic attack. Right-sided weakness. Slurred speech. COMPARISON: CT brain of prior day. FINDINGS: On the diffusion weighted imaging sequence, there are no abnormal areas of diffusion restricted to almanza ggest an acute infarction. This is confirmed on the ADC map. On the susceptibility weighted imaging sequence, there are no abnormal areas of hemorrhage. Minimal microvascular ischemic changes left subcortical white matter and right subcortical and deep w joe matter. No midline shift or mass effect. No hydrocephalus. The cerebellar tonsils terminate just below the foramen magnum. The ventricular asymmetry is unchang ed. 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 IMPRESSION: 1. No acute hemorrhage or infarct. 2. 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 POS: NATHANIEL
[2017-12-31 13:52] VITALS: BP 141/76
--- NOTE | 2017-12-31 23:59 | DIS ---
DATE OF ADMISSION: 12/30/2017 DATE OF DISCHARGE: 12/31/2017 DISCHARGE DISPOSITION: To home. PRIMARY DISCHARGE DIAGNOSIS: Transient ischemic attack with right-sided weakness, completely resolve d. SECONDARY DISCHARGE DIAGNOSES: Diabetes mellitus type 2, dyslipidemia, hypertension. PROCEDURES DONE DURING HOSPITALIZATION: Ultrasound venous Doppler done showed no evidence of DVT. C T brain done showed no acute intracranial process. MRI brain without contrast done showed no acute h emorrhage or infarct. There was enlargement of left lateral ventricle with aplasty of the splenium o f the corpus callosum, a chronic finding. Total cholesterol 160, triglycerides 144, LDL 104, HDL 27. Troponin x1 negative. DISCHARGE MEDICATIONS: Aspirin 81 mg p.o. daily, Norvasc 10 mg p.o. daily, glipizide 5 mg p.o. daily , lovastatin 20 mg p.o. daily, metformin 1000 mg p.o. twice daily. ALLERGIES: MOTRIN and TRAMADOL, but is not allergic to aspirin. DISCHARGE PLAN: The patient to follow up with primary care physician in 1 week. BRIEF COURSE DURING HOSPITALIZATION: The patient initially came to ER with complaints of right-sided weakness. This has been ongoing for 2 weeks and she was told that she was dragging her right foot b y her daughter, who summoned EMS. She was essentially placed under observation on stroke unit. A CT scan of the brain and MRI done have not revealed any acute abnormality. She is ambulating and eatin g well on the stroke unit. She was counseled with regards to medication compliance. The patient has been advised to check her fingerstick glucose daily and check her pulse and blood pressure twice liat ly, and follow up with her primary care physician in 2 weeks. Please see a [id number] documentatio n for the day of discharge on [facility].
[2018-01-01 18:51] LABS: ANA Symphony (Qualitative) POSITIVE (Negative); CENP IgG Antibody Less than 0.4 EliAU/mL (<7 Negative); Jo-1 IgG Antibody Less than 0.3 EliAU/mL (<7 Negative); RNP70 IgG Antibody Less than 0.3 EliAU/mL (<7 Negative); SSB/La IgG Antibody 1.3 EliAU/mL (<7 Negative); Scleroderma-70 IgG Antibody Less than 0.6 EliAU/mL (<7 Negative); Smith D IgG Antibody 0.9 EliAU/mL (<7 Negative); dsDNA IgG Antibody Less than 0.5 IU/mL (<10 Negative)
== END 2017-12-31 15:38 | disposition home or self-care (01) ==
LOC: ERS 13:35 → 2SE 18:01
PROVIDERS: ADMIT Internal Medicine; ATTEND Internal Medicine
DX: G45.9 Transient cerebral ischemic attack, unspecified (principal); E11.9 Type 2 diabetes mellitus without complications; E78.5 Hyperlipidemia, unspecified; I10 Essential (primary) hypertension; Z79.84 Long term (current) use of oral hypoglycemic drugs; Z79.82 Long term (current) use of aspirin; Z79.899 Other long term (current) drug therapy
CPT/HCPCS: 36415; 36416; 70450; 70551; 80048; 80053; 80061; 82553; 84484; 85025; 86038; 86225; 86235; 90471; 90686; 93005; 93970; 94760; 96372; 96374; 99406; G0008; G0378; G8987-GO-CI; G8988-GO-CI; G8989-GO-CI; G8996-GN-CH; G8997-GN-CH; J1650; J2270

== ENCOUNTER 2018-01-12 06:10 | Emergency (ER) | payer SELFPAY ==
[2018-01-12] MEDS ORDERED: Acetaminophen/Codeine 30-300mg Tablet ONE (07:55)
--- NOTE | 2018-01-12 09:26 | RAD ---
TWO VIEWS RIGHT HIP: Date: 01-12-18 History: Chronic right hip pain as well as right knee pain that radiates from the hip. FINDINGS: There is no evidence of a fracture or dislocation involving the right hip. No other osseous abnormali ty. IMPRESSION: No acute osseous abnormality right hip. POS: NATHANIEL
--- NOTE | 2018-01-12 09:44 | RAD ---
AP PELVIS: HISTORY: Pelvic pain and right hip pain. FINDINGS: The pelvic ring is intact without evidence of fracture. SI joints are symmetric. Some c hanges adjacent to the greater trochanter of the right hip. The joint space does not appear signific antly narrowed. There are some arthritic changes of the lower lumbar spine. IMPRESSION: Calcification related to the greater trochanter. Changes are related to the gluteus minimus and medi as tendons and appear chronic in nature. No significant arthritic change. POS: TPC
== END 2018-01-12 09:27 | disposition home or self-care (01) ==
LOC: ERS 06:10
DX: M25.551 Pain in right hip (principal); E11.9 Type 2 diabetes mellitus without complications; E78.5 Hyperlipidemia, unspecified; I10 Essential (primary) hypertension; Z86.73 Personal history of transient ischemic attack (TIA), and cerebral infarction without residual deficits; J45.909 Unspecified asthma, uncomplicated; F32.9 Major depressive disorder, single episode, unspecified; F41.9 Anxiety disorder, unspecified; F17.210 Nicotine dependence, cigarettes, uncomplicated; Z79.899 Other long term (current) drug therapy; Z79.82 Long term (current) use of aspirin; Z79.84 Long term (current) use of oral hypoglycemic drugs
CPT/HCPCS: 72170

== ENCOUNTER 2018-01-17 02:12 | Emergency (ER) | payer SELFPAY ==
[2018-01-17] MEDS ORDERED: Dexamethasone 10 MG/ML VIAL ONE (02:47)
[2018-01-17] MEDS ORDERED: HYDROcodone/Acetaminophen 10/325 mg Tablet ONE (04:08)
--- NOTE | 2018-01-17 08:59 | RAD ---
AP PELVIS: History: 47-year-old female w pelvic pain. FINDINGS: No evidence of pelvic fractures, subluxations, or bony lesions seen. IMPRESSION: Unremarkable AP view pelvis. Radiograph not significantly changed since previous comparison exam from 01-12-18. POS: NATHANIEL
== END 2018-01-17 04:40 | disposition home or self-care (01) ==
LOC: ERS 02:12
DX: M54.16 Radiculopathy, lumbar region (principal); Z71.6 Tobacco abuse counseling; E78.5 Hyperlipidemia, unspecified; I10 Essential (primary) hypertension; Z86.73 Personal history of transient ischemic attack (TIA), and cerebral infarction without residual deficits; J45.909 Unspecified asthma, uncomplicated; F32.9 Major depressive disorder, single episode, unspecified; F41.9 Anxiety disorder, unspecified; F17.210 Nicotine dependence, cigarettes, uncomplicated; Z79.899 Other long term (current) drug therapy; Z79.84 Long term (current) use of oral hypoglycemic drugs
CPT/HCPCS: 72170; 99406; J1100

== ENCOUNTER 2018-02-28 06:55 | Emergency (ER) | payer SELFPAY ==
[2018-02-28 08:30] LABS: Anion Gap 10 mmol/L (10-20); BUN (Urea Nitrogen) 10 mg/dL (7.0-18.7); CK (CPK) 51 U/L (29-168); Calc. Creatinine Clearance 0 mL/min (70-130); Calcium 9.4 mg/dL (7.8-10.44); Carbon Dioxide 25 mmol/L (22-29); Chloride 103 mmol/L (98-107); Estimated GFR-MDRD 81; Glucose 216 mg/dL (70-105); Potassium 3.6 mmol/L (3.5-5.1); Sodium 134 mmol/L (136-145)
[2018-02-28] MEDS ORDERED: HYDROcodone/Acetaminophen 10/325 mg Tablet ONE (08:30)
--- NOTE | 2018-02-28 09:51 | ULT ---
ULTRASOUND WITH DOPPLER DUPLEX VENOUS LOWER EXTREMITY LEFT: HISTORY: A 47-year-old female with left lower extremity pain and swelling. TECHNIQUE: Color flow Doppler, spectral waveform analysis of pulsed Doppler, and cardenas-scale imaging with graham marie and augmentation, were used to evaluate the left common femoral, femoral, popliteal, posterior t ibial, and superficial femoral, veins; and the proximal portions of the profunda femoral and greater saphenous, veins. FINDINGS: There is normal compressibility, demonstration of blood flow by color Doppler and pulsed Doppler, and response to augmentation, in all interrogated veins. IMPRESSION: Negative. No deep vein thrombosis in the left lower extremity. jn[] POS: TPC
== END 2018-02-28 09:01 | disposition home or self-care (01) ==
LOC: ERS 06:55
DX: R60.0 Localized edema (principal); I10 Essential (primary) hypertension; E78.5 Hyperlipidemia, unspecified; M06.9 Rheumatoid arthritis, unspecified; E11.9 Type 2 diabetes mellitus without complications; F41.9 Anxiety disorder, unspecified; Z79.82 Long term (current) use of aspirin; Z79.899 Other long term (current) drug therapy; Z86.73 Personal history of transient ischemic attack (TIA), and cerebral infarction without residual deficits; Z79.84 Long term (current) use of oral hypoglycemic drugs
CPT/HCPCS: 80048; 82550

== ENCOUNTER 2018-03-15 21:13 | Emergency (ER) | payer SELFPAY | END 2018-03-15 22:44 | disposition home or self-care (01) | LOC: ERS 21:13 | DX: J06.9 Acute upper respiratory infection, unspecified (principal); E11.9 Type 2 diabetes mellitus without complications; E78.5 Hyperlipidemia, unspecified; I10 Essential (primary) hypertension; J45.909 Unspecified asthma, uncomplicated; F41.9 Anxiety disorder, unspecified; F32.9 Major depressive disorder, single episode, unspecified; F17.210 Nicotine dependence, cigarettes, uncomplicated; M06.9 Rheumatoid arthritis, unspecified; Z86.73 Personal history of transient ischemic attack (TIA), and cerebral infarction without residual deficits; Z79.899 Other long term (current) drug therapy; Z79.82 Long term (current) use of aspirin; Z79.84 Long term (current) use of oral hypoglycemic drugs | CPT/HCPCS: 99283 ==

== ENCOUNTER 2018-05-28 18:57 | Emergency (ER) | payer SELFPAY | END 2018-05-28 20:49 | disposition home or self-care (01) | LOC: ERS 18:57 | DX: J01.90 Acute sinusitis, unspecified (principal); E11.9 Type 2 diabetes mellitus without complications; E78.5 Hyperlipidemia, unspecified; I10 Essential (primary) hypertension; G43.909 Migraine, unspecified, not intractable, without status migrainosus; F41.9 Anxiety disorder, unspecified; F32.9 Major depressive disorder, single episode, unspecified; F17.210 Nicotine dependence, cigarettes, uncomplicated; M06.9 Rheumatoid arthritis, unspecified; Z86.73 Personal history of transient ischemic attack (TIA), and cerebral infarction without residual deficits; Z79.899 Other long term (current) drug therapy | CPT/HCPCS: 36416; 87804; 99283 ==

== ENCOUNTER 2018-06-16 11:32 | Emergency (ER) | payer SELFPAY | END 2018-06-16 13:40 | disposition home or self-care (01) | LOC: ERS 11:32 | DX: H10.9 Unspecified conjunctivitis (principal); E78.5 Hyperlipidemia, unspecified; E11.9 Type 2 diabetes mellitus without complications; I10 Essential (primary) hypertension; J45.909 Unspecified asthma, uncomplicated; M06.9 Rheumatoid arthritis, unspecified; G43.909 Migraine, unspecified, not intractable, without status migrainosus; F41.9 Anxiety disorder, unspecified; F32.9 Major depressive disorder, single episode, unspecified; F17.210 Nicotine dependence, cigarettes, uncomplicated; Z86.73 Personal history of transient ischemic attack (TIA), and cerebral infarction without residual deficits | CPT/HCPCS: 99281 ==

== ENCOUNTER 2018-08-07 15:33 | Emergency (ER) | payer SELFPAY ==
[2018-08-07] MEDS ORDERED: Lorazepam 2 MG/ML VIAL ONE (16:06)
[2018-08-07 16:07] LABS: #Eosinphils 0.1 thou/uL (0.0-0.7); #Lymphocytes 2.8 thou/uL (1.20-3.40); #Monocytes 0.5 thou/uL (0.11-0.59); #Neutrophils 9.4 thou/uL (1.40-6.50); %Basophils 0.3 % (0.0-1.0); %Lymphocytes 21.8 % (21.0-51.0); %Monocytes 3.7 % (0.0-10.0); %Neutrophils 73.2 % (42.0-75.0); Mean Corpuscular HGB CONC 33.7 g/dL (32.0-36.0); Mean Corpuscular Hemoglobin 28.6 pg (27.0-31.0); Mean Corpuscular Volume 84.6 fL (78.0-98.0); Mean Platelet Volume 8.7 fL (7.4-10.4); Platelet Count 229 thou/uL (130-400); Red Blood Cell (RBC) Count 5.25 mill/uL (4.20-5.40); White Blood Cell (WBC) Count 12.8 thou/uL (4.8-10.8)
--- NOTE | 2018-08-07 16:15 | RAD ---
XR Chest 1 View Portable History: [Chest pain] Comparison: Radiograph May Findings: Lungs are clear. No pneumothorax or effusion. Cardiac silhouette and mediastinal contours a re within normal limits. Impression: No acute intrathoracic abnormality.
[2018-08-07 16:22] LABS: ALT (SGPT) Less than 7 U/L (8-55); AST (SGOT) 11 U/L (5-34); Albumin 4.3 g/dL (3.5-5.0); Alkaline Phosphatase 146 U/L (40-150); Anion Gap 15 mmol/L (10-20); BUN (Urea Nitrogen) 9 mg/dL (7.0-18.7); Bilirubin, Total 0.4 mg/dL (0.2-1.2); Calc. Creatinine Clearance 0 mL/min (70-130); Calcium 9.5 mg/dL (7.8-10.44); Carbon Dioxide 20 mmol/L (22-29); Chloride 103 mmol/L (98-107); Estimated GFR-MDRD 81; Globulin 4.3 g/dL (2.4-3.5); Glucose 201 mg/dL (70-105); Potassium 3.2 mmol/L (3.5-5.1); Protein, Total 8.6 g/dL (6.0-8.3); Sodium 135 mmol/L (136-145)
[2018-08-07 18:00] LABS: Troponin I 0.015 ng/mL (< 0.028)
== END 2018-08-07 18:30 | disposition home or self-care (01) ==
LOC: ERS 15:33
DX: R07.9 Chest pain, unspecified (principal); F17.210 Nicotine dependence, cigarettes, uncomplicated; F41.9 Anxiety disorder, unspecified; E11.9 Type 2 diabetes mellitus without complications; G43.909 Migraine, unspecified, not intractable, without status migrainosus; E78.5 Hyperlipidemia, unspecified; I10 Essential (primary) hypertension; Z86.73 Personal history of transient ischemic attack (TIA), and cerebral infarction without residual deficits; Z79.82 Long term (current) use of aspirin; Z79.84 Long term (current) use of oral hypoglycemic drugs
CPT/HCPCS: 36415; 71045; 80053; 84484; 85025; 93005; 96374; J2060

== ENCOUNTER 2020-05-09 15:36 | Emergency (ER) | payer SELFPAY ==
[2020-05-09 22:24] LABS: SARS-CoV-2 PCR by NAA Not Detected (NotDetected)
== END 2020-05-09 16:15 | disposition home or self-care (01) ==
LOC: ERS 15:36
DX: Z20.822 Contact with and (suspected) exposure to COVID-19 (principal); E11.9 Type 2 diabetes mellitus without complications; E78.5 Hyperlipidemia, unspecified; E78.00 Pure hypercholesterolemia, unspecified; I10 Essential (primary) hypertension; J45.909 Unspecified asthma, uncomplicated; Z86.73 Personal history of transient ischemic attack (TIA), and cerebral infarction without residual deficits
CPT/HCPCS: 87635; 99283; U0003; U0005

== ENCOUNTER 2021-01-14 17:45 | Emergency (ER) | payer SELFPAY ==
[2021-01-14 18:32] LABS: #Basophils 0.1 thou/uL (0.0-0.2); #Eosinphils 0.2 thou/uL (0.0-0.7); #Lymphocytes 3.9 thou/uL (1.20-3.40); #Monocytes 0.6 thou/uL (0.11-0.59); #Neutrophils 6.9 thou/uL (1.40-6.50); %Basophils 0.7 % (0.0-1.0); %Lymphocytes 33.2 % (21.0-51.0); %Monocytes 4.9 % (0.0-10.0); %Neutrophils 59.2 % (42.0-75.0); Mean Corpuscular HGB CONC 33.7 g/dL (32.0-36.0); Mean Corpuscular Hemoglobin 28.7 pg (27.0-31.0); Mean Corpuscular Volume 85.2 fL (78.0-98.0); Mean Platelet Volume 8.8 fL (7.4-10.4); Platelet Count 210 thou/uL (130-400); RBC Distribution Width 14.2 % (11.5-14.5); Red Blood Cell (RBC) Count 5.92 mill/uL (4.20-5.40); White Blood Cell (WBC) Count 11.6 thou/uL (4.8-10.8)
[2021-01-14 19:04] LABS: ALT (SGPT) 9 U/L (8-55); AST (SGOT) 11 U/L (5-34); Alkaline Phosphatase 167 U/L (40-110); Anion Gap 11 mmol/L (10-20); BUN (Urea Nitrogen) 7 mg/dL (9.8-20.1); Bilirubin, Total 0.2 mg/dL (0.2-1.2); Calc. Creatinine Clearance 0 mL/min (70-130); Calcium 9.5 mg/dL (7.8-10.44); Carbon Dioxide 25 mmol/L (22-29); Chloride 103 mmol/L (98-107); Globulin 3.7 g/dL (2.4-3.5); Glucose 298 mg/dL (70-105); Potassium 4.3 mmol/L (3.5-5.1); Protein, Total 7.7 g/dL (6.0-8.3); Sodium 135 mmol/L (136-145)
[2021-01-14 21:31] LABS: INR-International Normal Ratio 0.9; PTT 25.2 sec (22.9-36.1)
[2021-01-14] MEDS ORDERED: Magnesium 2 GM/50 ML BAG (IN WATER) ONE (21:47)
[2021-01-14] MEDS ORDERED: Acetaminophen 500 MG TAB ONE (21:47)
[2021-01-14] MEDS ORDERED: diphenhydrAMINE 50 MG/ML VIAL ONE (21:48)
[2021-01-14] MEDS ORDERED: Ketorolac Tromethamine 30 MG/ML VIAL ONE (21:48)
[2021-01-14] MEDS ORDERED: Prochlorperazine 10 MG/2 ML VIAL ONE (21:49)
[2021-01-14 21:55] LABS: Bilirubin Negative (Negative); Blood, Urine Negative (Negative); Clarity Clear (Clear); Glucose, Urine (Dipstick) Greater than 1000 mg/dL (Negative); Ketone, Urine Negative (Negative); Leukocyte Negative Leu/uL (Negative); Nitrite Negative (Negative); Protein, Urine (Dipstick) Negative (Neg-Trace); Specific Gravity, Urine 1.039 (1.002-1.036); Urobilinogen Normal mg/dL (Less than 2); pH, Urine 5.5 (5.0-9.0)
== END 2021-01-14 23:41 | disposition home or self-care (01) ==
LOC: ERS 17:45
DX: R51.9 Headache, unspecified (principal); E11.9 Type 2 diabetes mellitus without complications; E78.00 Pure hypercholesterolemia, unspecified; E78.5 Hyperlipidemia, unspecified; I10 Essential (primary) hypertension; J45.909 Unspecified asthma, uncomplicated; M06.9 Rheumatoid arthritis, unspecified; F17.210 Nicotine dependence, cigarettes, uncomplicated; Z79.899 Other long term (current) drug therapy
CPT/HCPCS: 36415; 70450; 71045; 80053; 81003; 84484; 85025; 85610; 85730; 93005; 96365; 96375; J0780; J1200; J1885; J3475

== ENCOUNTER 2021-03-15 17:13 | Emergency (ER) | payer SELFPAY ==
[2021-03-15] MEDS ORDERED: predniSONE 20 MG TAB ONE (18:19)
[2021-03-15 19:26] LABS: SARS-CoV-2 NAA Rapid Test Not Detected (NotDetected)
== END 2021-03-15 19:03 | disposition home or self-care (01) ==
LOC: ERS 17:13
DX: J45.901 Unspecified asthma with (acute) exacerbation (principal); B34.9 Viral infection, unspecified; I10 Essential (primary) hypertension; E11.9 Type 2 diabetes mellitus without complications; E78.5 Hyperlipidemia, unspecified; E78.00 Pure hypercholesterolemia, unspecified; G43.909 Migraine, unspecified, not intractable, without status migrainosus; M06.9 Rheumatoid arthritis, unspecified; Z86.73 Personal history of transient ischemic attack (TIA), and cerebral infarction without residual deficits; Z20.822 Contact with and (suspected) exposure to COVID-19; Z79.899 Other long term (current) drug therapy
CPT/HCPCS: 0240U; 71045; 99285; J7512; J7620

== ENCOUNTER 2021-03-22 21:20 | Emergency (ER) | payer SELFPAY | END 2021-03-22 22:17 | disposition left against medical advice (07) | LOC: ERS 21:20 | DX: Z53.21 Procedure and treatment not carried out due to patient leaving prior to being seen by health care provider (principal) | CPT/HCPCS: 93005 ==

== ENCOUNTER 2021-09-05 03:27 | Emergency (ER) | payer SELFPAY | END 2021-09-05 04:40 | disposition home or self-care (01) | LOC: ERS 03:27 | DX: R11.0 Nausea (principal); E11.9 Type 2 diabetes mellitus without complications; I10 Essential (primary) hypertension; M06.9 Rheumatoid arthritis, unspecified; F17.210 Nicotine dependence, cigarettes, uncomplicated; Z86.73 Personal history of transient ischemic attack (TIA), and cerebral infarction without residual deficits; Z79.899 Other long term (current) drug therapy; Z79.84 Long term (current) use of oral hypoglycemic drugs | CPT/HCPCS: 93005 ==

== ENCOUNTER 2021-09-08 22:54 | Emergency (ER) | payer SELFPAY ==
[2021-09-09 00:06] LABS: #Eosinphils 0.1 thou/uL (0.0-0.7); #Lymphocytes 3.4 thou/uL (1.20-3.40); #Monocytes 0.5 thou/uL (0.11-0.59); %Basophils 0.5 % (0.0-1.0); %Eosinophils 1.1 % (0.0-10.0); %Lymphocytes 37.6 % (21.0-51.0); %Neutrophils 55.7 % (42.0-75.0); Mean Corpuscular HGB CONC 34.4 g/dL (32.0-36.0); Mean Corpuscular Hemoglobin 29.9 pg (27.0-31.0); Mean Corpuscular Volume 86.7 fL (78.0-98.0); Platelet Count 170 thou/uL (130-400); RBC Distribution Width 13.9 % (11.5-14.5); Red Blood Cell (RBC) Count 5.03 mill/uL (4.20-5.40); White Blood Cell (WBC) Count 8.9 thou/uL (4.8-10.8)
[2021-09-09 00:18] LABS: Phosphorus 3.9 mg/dL (2.3-4.7)
[2021-09-09 00:22] LABS: ALT (SGPT) 13 U/L (8-55); AST (SGOT) 19 U/L (5-34); Albumin 3.6 g/dL (3.5-5.0); Alkaline Phosphatase 147 U/L (40-110); Anion Gap 12 mmol/L (10-20); BUN (Urea Nitrogen) 14 mg/dL (9.8-20.1); Bilirubin, Total 0.3 mg/dL (0.2-1.2); Calc. Creatinine Clearance 0 mL/min (70-130); Calcium 8.7 mg/dL (7.8-10.44); Carbon Dioxide 22 mmol/L (22-29); Chloride 104 mmol/L (98-107); Globulin 3.2 g/dL (2.4-3.5); Glucose 348 mg/dL (70-105); Magnesium 1.8 mg/dL (1.6-2.6); Potassium 3.8 mmol/L (3.5-5.1); Protein, Total 6.8 g/dL (6.0-8.3); Sodium 134 mmol/L (136-145)
[2021-09-09] MEDS ORDERED: Ondansetron PF 4 MG/2 ML Vial ONE (01:16)
== END 2021-09-09 01:54 | disposition home or self-care (01) ==
LOC: ERS 22:54
DX: E11.65 Type 2 diabetes mellitus with hyperglycemia (principal); R53.81 Other malaise; R11.0 Nausea; E11.9 Type 2 diabetes mellitus without complications; I10 Essential (primary) hypertension; Z86.73 Personal history of transient ischemic attack (TIA), and cerebral infarction without residual deficits; M06.9 Rheumatoid arthritis, unspecified; F17.210 Nicotine dependence, cigarettes, uncomplicated; Z79.899 Other long term (current) drug therapy; Z79.84 Long term (current) use of oral hypoglycemic drugs
CPT/HCPCS: 36415; 36416; 80053; 82010; 83735; 84100; 84484; 85025; 93005; 96361; 96374; J2405

== ENCOUNTER 2022-09-29 09:15 | Emergency (ER) | payer SELFPAY ==
[2022-09-29 09:43] LABS: #Eosinphils 0.2 thou/uL (0.0-0.7); #Monocytes 0.6 thou/uL (0.11-0.59); #Neutrophils 5.1 thou/uL (1.40-6.50); %Basophils 0.4 % (0.0-1.0); %Eosinophils 2.7 % (0.0-10.0); %Lymphocytes 33.5 % (21.0-51.0); %Monocytes 6.7 % (0.0-10.0); %Neutrophils 56.4 % (42.0-75.0); Hemoglobin 16.1 g/dL (12.0-16.0); Mean Corpuscular HGB CONC 33.7 g/dL (32.0-36.0); Mean Platelet Volume 11.6 fL (7.4-10.4); Platelet Count 209 10x3/uL (130-400); RBC Distribution Width 14.6 % (11.5-14.5); Red Blood Cell (RBC) Count 5.76 mill/uL (4.20-5.40)
[2022-09-29 09:46] LABS: Actual Bicarbonate (HCO3v) 19.8 mEq/L (22-28); Base Excess -4.2 mEq/L (-2.0 to +3.0); Calcium, Ionized (venous) 1.08 mmol/L (1.16-1.32); Chloride (VBG) 98 mmol/L (98-106); Hematocrit-VBG 47 % (36.0-47.0); Hemoglobin (Hb) 15.9 g/dL (11.7-16.0); Potassium (VBG) 3.92 mmol/L (3.70-5.30); Sodium 130.4 mmol/L (133-146); pH (venous) 7.385 (7.32-7.43)
[2022-09-29 10:24] LABS: Albumin 4.1 g/dL (3.5-5.0)
[2022-09-29 10:25] LABS: Chloride 99 mmol/L (98-107); Potassium 4.3 mmol/L (3.5-5.1); Sodium 132 mmol/L (136-145)
[2022-09-29 10:26] LABS: Calcium 9.4 mg/dL (7.8-10.44)
[2022-09-29 10:27] LABS: Globulin 3.4 g/dL (2.4-3.5); Protein, Total 7.5 g/dL (6.0-8.3)
[2022-09-29 10:28] LABS: Anion Gap 15 mmol/L (10-20); Bilirubin, Total 0.4 mg/dL (0.2-1.2); Carbon Dioxide 22 mmol/L (22-29)
[2022-09-29 10:29] LABS: Alkaline Phosphatase 146 U/L (40-110); Glucose 413 mg/dL (70-105)
[2022-09-29 10:30] LABS: Calc. Creatinine Clearance 0 mL/min (70-130); Estimated GFR 95
[2022-09-29 10:31] LABS: BUN (Urea Nitrogen) 13 mg/dL (9.8-20.1)
[2022-09-29 10:32] LABS: ALT (SGPT) 8 U/L (8-55); AST (SGOT) 16 U/L (5-34)
[2022-09-29 10:48] LABS: Bacteria/HPF None Seen HPF (None Seen); Bilirubin Negative (Negative); Blood, Urine Negative (Negative); CAUTI Indications for Culture Dysuria,urgency,freq; Clarity Clear (Clear); Glucose, Urine (Dipstick) Greater than 1000 mg/dL (Negative); Ketone, Urine Negative (Negative); Leukocyte Negative Leu/uL (Negative); Nitrite Negative (Negative); Protein, Urine (Dipstick) Negative (Neg-Trace); RBC/HPF 0-3 HPF (0-3); Specific Gravity, Urine 1.017 (1.002-1.036); Squamous Epithelial None Seen HPF (0-3); Urobilinogen Normal mg/dL (Less than 2); WBC/HPF 0-3 HPF (0-3)
[2022-09-29 10:50] LABS: Urine Culture Reflex No No
== END 2022-09-29 11:12 | disposition home or self-care (01) ==
LOC: ERS 09:15
DX: E11.65 Type 2 diabetes mellitus with hyperglycemia (principal); I10 Essential (primary) hypertension; F17.210 Nicotine dependence, cigarettes, uncomplicated
CPT/HCPCS: 36415; 36416; 80053; 81001; 82010; 82805; 85025; 94760; 96360

== ENCOUNTER 2022-10-15 21:50 | Emergency (ER) | payer SELFPAY ==
[2022-10-15 23:25] LABS: #Eosinphils 0.1 thou/uL (0.0-0.7); #Monocytes 0.6 thou/uL (0.11-0.59); #Neutrophils 5.4 thou/uL (1.40-6.50); %Basophils 0.3 % (0.0-1.0); %Eosinophils 1.1 % (0.0-10.0); %Lymphocytes 32.4 % (21.0-51.0); %Monocytes 6.5 % (0.0-10.0); %Neutrophils 59.4 % (42.0-75.0); Hemoglobin 14.4 g/dL (12.0-16.0); Mean Corpuscular Hemoglobin 28.1 pg (27.0-31.0); Mean Platelet Volume 11.4 fL (7.4-10.4); Platelet Count 186 10x3/uL (130-400); RBC Distribution Width 14.6 % (11.5-14.5); Red Blood Cell (RBC) Count 5.13 mill/uL (4.20-5.40); White Blood Cell (WBC) Count 9.1 10x3/uL (4.8-10.8)
[2022-10-15 23:33] LABS: Actual Bicarbonate (HCO3v) 21.5 mEq/L (22-28); Base Excess -3.7 mEq/L (-2.0 to +3.0); Chloride (VBG) 103 mmol/L (98-106); Hematocrit-VBG 45 % (36.0-47.0); Hemoglobin (Hb) 15.2 g/dL (11.7-16.0); Potassium (VBG) 3.49 mmol/L (3.70-5.30); Sodium 135.8 mmol/L (133-146); pH (venous) 7.352 (7.32-7.43)
[2022-10-15 23:46] LABS: ALT (SGPT) Less than 7 U/L (8-55); AST (SGOT) 10 U/L (5-34); Albumin 3.8 g/dL (3.5-5.0); Alkaline Phosphatase 120 U/L (40-110); Anion Gap 13 mmol/L (10-20); BUN (Urea Nitrogen) 15 mg/dL (9.8-20.1); Bilirubin, Total 0.3 mg/dL (0.2-1.2); Calc. Creatinine Clearance 0 mL/min (70-130); Calcium 8.8 mg/dL (7.8-10.44); Carbon Dioxide 21 mmol/L (22-29); Chloride 105 mmol/L (98-107); Estimated GFR 99; Globulin 2.9 g/dL (2.4-3.5); Glucose 333 mg/dL (70-105); Magnesium 1.9 mg/dL (1.6-2.6); Potassium 3.3 mmol/L (3.5-5.1); Protein, Total 6.7 g/dL (6.0-8.3); Sodium 136 mmol/L (136-145)
[2022-10-16] MEDS ORDERED: Potassium Chloride 20 MEQ TAB ONE (00:18)
== END 2022-10-16 00:32 | disposition home or self-care (01) ==
LOC: ERS 21:50
DX: E11.9 Type 2 diabetes mellitus without complications (principal); I10 Essential (primary) hypertension; F17.210 Nicotine dependence, cigarettes, uncomplicated
CPT/HCPCS: 36415; 36416; 80053; 82010; 82805; 83735; 85025; 93005; 96360

== ENCOUNTER 2022-12-08 21:50 | Emergency (ER) | payer BC ==
[2022-12-08 22:45] LABS: Actual Bicarbonate (HCO3v) 21.7 mEq/L (22-28); Base Excess -2.6 mEq/L (-2.0 to +3.0); Calcium, Ionized (venous) 1.15 mmol/L (1.16-1.32); Chloride (VBG) 99 mmol/L (98-106); Hematocrit-VBG 48 % (36.0-47.0); Hemoglobin (Hb) 16.3 g/dL (11.7-16.0); Potassium (VBG) 4.67 mmol/L (3.70-5.30); Sodium 133.2 mmol/L (133-146); pH (venous) 7.391 (7.32-7.43)
[2022-12-08 22:50] LABS: #Eosinphils 0.1 thou/uL (0.0-0.7); #Monocytes 0.7 thou/uL (0.11-0.59); #Neutrophils 4.1 thou/uL (1.40-6.50); %Basophils 0.4 % (0.0-1.0); %Eosinophils 1.4 % (0.0-10.0); %Lymphocytes 39.1 % (21.0-51.0); %Monocytes 8.3 % (0.0-10.0); %Neutrophils 50.6 % (42.0-75.0); Hematocrit 45.5 % (36.0-47.0); Hemoglobin 15.5 g/dL (12.0-16.0); Mean Corpuscular HGB CONC 34.1 g/dL (32.0-36.0); Mean Corpuscular Volume 82.3 fl (78.0-98.0); Mean Platelet Volume 10.8 fL (7.4-10.4); Platelet Count 209 10x3/uL (130-400); RBC Distribution Width 13.9 % (11.5-14.5); Red Blood Cell (RBC) Count 5.53 mill/uL (4.20-5.40)
[2022-12-08] MEDS ORDERED: Acetaminophen 500 MG TAB ONE (23:02)
[2022-12-08 23:08] LABS: ALT (SGPT) 12 U/L (8-55); AST (SGOT) 13 U/L (5-34); Albumin 3.9 g/dL (3.5-5.0); Alkaline Phosphatase 162 U/L (40-110); Anion Gap 13 mmol/L (10-20); BUN (Urea Nitrogen) 11 mg/dL (9.8-20.1); Bilirubin, Total 0.2 mg/dL (0.2-1.2); Calc. Creatinine Clearance 0 mL/min (70-130); Calcium 9.2 mg/dL (7.8-10.44); Carbon Dioxide 22 mmol/L (22-29); Chloride 100 mmol/L (98-107); Estimated GFR 76; Globulin 3.4 g/dL (2.4-3.5); Lipase 52 U/L (8-78); Potassium 3.6 mmol/L (3.5-5.1); Protein, Total 7.3 g/dL (6.0-8.3); Sodium 131 mmol/L (136-145)
[2022-12-08 23:13] LABS: Glucose 509 mg/dL (70-105)
[2022-12-08 23:15] LABS: Troponin I Less than 0.010 ng/mL (< 0.028)
== END 2022-12-09 00:40 | disposition home or self-care (01) ==
LOC: ERS 21:50
DX: E11.65 Type 2 diabetes mellitus with hyperglycemia (principal); I10 Essential (primary) hypertension; F17.210 Nicotine dependence, cigarettes, uncomplicated; Z86.73 Personal history of transient ischemic attack (TIA), and cerebral infarction without residual deficits; Z79.84 Long term (current) use of oral hypoglycemic drugs
CPT/HCPCS: 36415; 36416; 80053; 82010; 82805; 83690; 83735; 84484; 85025; 93005; 96360

== ENCOUNTER 2023-03-31 20:31 | Emergency (ER) | payer BC ==
[2023-03-31 21:11] LABS: #Basophils 0.1 thou/uL (0.0-0.2); #Eosinphils 0.2 thou/uL (0.0-0.7); #Monocytes 0.7 thou/uL (0.11-0.59); #Neutrophils 8.5 thou/uL (1.40-6.50); %Basophils 0.4 % (0.0-1.0); %Eosinophils 1.8 % (0.0-10.0); %Lymphocytes 20.8 % (21.0-51.0); %Monocytes 5.8 % (0.0-10.0); Hematocrit 46.7 % (36.0-47.0); Mean Corpuscular HGB CONC 34.3 g/dL (32.0-36.0); Mean Corpuscular Hemoglobin 27.6 pg (27.0-31.0); Mean Corpuscular Volume 80.5 fl (78.0-98.0); Mean Platelet Volume 10.7 fL (7.4-10.4); Platelet Count 188 10x3/uL (130-400); RBC Distribution Width 14.2 % (11.5-14.5)
[2023-03-31 21:31] LABS: ALT (SGPT) 11 U/L (8-55); AST (SGOT) 19 U/L (5-34); Albumin 3.7 g/dL (3.5-5.0); Alkaline Phosphatase 133 U/L (40-110); Anion Gap 13 mmol/L (10-20); BUN (Urea Nitrogen) 12 mg/dL (9.8-20.1); Bilirubin, Total 0.2 mg/dL (0.2-1.2); Calc. Creatinine Clearance 0 mL/min (70-130); Calcium 8.8 mg/dL (7.8-10.44); Carbon Dioxide 24 mmol/L (22-29); Chloride 100 mmol/L (98-107); Estimated GFR 90; Globulin 4.1 g/dL (2.4-3.5); Glucose 355 mg/dL (70-105); Potassium 4.3 mmol/L (3.5-5.1); Protein, Total 7.8 g/dL (6.0-8.3); Sodium 133 mmol/L (136-145)
[2023-03-31 22:20] LABS: Bacteria/HPF 2+ HPF (None Seen); Bilirubin Negative (Negative); Blood, Urine Negative (Negative); CAUTI Indications for Culture Dysuria,urgency,freq; Clarity Clear (Clear); Glucose, Urine (Dipstick) Greater than 1000 mg/dL (Negative); Ketone, Urine Negative (Negative); Leukocyte 25 Leu/uL (Negative); Nitrite Negative (Negative); Protein, Urine (Dipstick) Negative (Neg-Trace); RBC/HPF 0-3 HPF (0-3); Specific Gravity, Urine 1.027 (1.002-1.036); Squamous Epithelial 0-3 HPF (0-3); Urobilinogen Normal mg/dL (Less than 2); WBC/HPF 21-50 HPF (0-3); Yeast-Budding Rare HPF (None Seen)
[2023-03-31 22:23] LABS: Urine Culture Reflex Yes Yes
[2023-03-31] MEDS ORDERED: Lidocaine 1% w/Epinephrine 1:100K 20 ML VIAL ONE (22:33)
[2023-03-31] MEDS ORDERED: Insulin Regular 300 UNITS/3 ML VIAL ONE (22:39)
[2023-03-31 22:51] LABS: SARS-CoV-2 NAA Rapid Test Not Detected (NotDetected)
== END 2023-04-01 00:36 | disposition home or self-care (01) ==
LOC: ERS 20:31
DX: E11.65 Type 2 diabetes mellitus with hyperglycemia (principal); L02.01 Cutaneous abscess of face; I10 Essential (primary) hypertension; F17.210 Nicotine dependence, cigarettes, uncomplicated; Z79.899 Other long term (current) drug therapy; Z79.84 Long term (current) use of oral hypoglycemic drugs
CPT/HCPCS: 10060; 36415; 36416; 80053; 81001; 82010; 85025; 87077; 87086; 87186; 96361; 96374; 96376; J1815

== ENCOUNTER 2024-04-04 07:53 | Emergency (ER) | payer BC, SELFPAY ==
[2024-04-04] MEDS ORDERED: Ketorolac Tromethamine 30 MG (1 mL) VIAL ONE (08:51)
[2024-04-04] MEDS ORDERED: Dexamethasone 10 MG/ML VIAL ONE (08:52)
== END 2024-04-04 09:14 | disposition home or self-care (01) ==
LOC: ERS 07:53
DX: M54.41 Lumbago with sciatica, right side (principal); F17.210 Nicotine dependence, cigarettes, uncomplicated; I10 Essential (primary) hypertension; E11.9 Type 2 diabetes mellitus without complications; Z86.73 Personal history of transient ischemic attack (TIA), and cerebral infarction without residual deficits
CPT/HCPCS: 96372; 99283; J1100; J1885